=== PATIENT | female | born 1970 | race Caucasian/White ===

== ENCOUNTER → 2021-10-08 07:25 | Outpatient (CLI) | payer OTHER, SELFPAY ==
--- NOTE | ~2021-10-08 | MR_ITS ---
EXAMINATION: MR knee LT wo con DATE: 10/08/2021 08:02 INDICATION: Chronic anterior left knee pain TECHNIQUE: Magnetic resonance imaging (MRI) of the left knee was performed without intravenous contra st. Sequences included coronal PD-weighted FSE, coronal PD-weighted FS FSE, sagittal T2-weighted FSE , sagittal PD-weighted FS FSE and axial PD weighted fat saturated FSE. COMPARISON: None. FINDINGS: Medial compartment: Medial meniscus is normal. Partial-thickness chondral ulceration with chondral surface irregularity a nd partial-thickness cartilage loss mild at the anterior weightbearing medial femoral condyle and inv olving greater than 50% the cartilage thickness at the central weightbearing medial femoral condyle. Partial-thickness chondral fissure along the lateral aspect of the medial tibial plateau. Lateral compartment: Lateral meniscus is normal. Deep chondral ulceration with small central subchondral osteophytes at th e medial side of the anterior weightbearing lateral femoral condyle. Partial-thickness chondral fissu ring along the lateral tibial plateau. Patellofemoral compartment: Deep chondral ulceration at the patellar apical ridge. Small region of partial-thickness chondral fis suring at both the medial and lateral patellar facets. Additional more extensive and partial-thicknes s chondral ulceration and place involving greater than 50% the cartilage thickness at the medial and lateral trochlea and intervening trochlear groove. Ligaments and tendons: Anterior and posterior cruciate ligaments are normal. The medial collateral ligament and fibular triston ateral ligament complex are normal. Mild tendinopathy at the proximal patellar tendon. Quadriceps ten don is normal. The visualized medial and lateral hamstring tendons as well as the iliotibial band are normal. Fluid: Minimal left knee joint effusion at the lateral gutter of the suprapatellar pouch. No loose osteochon dral bodies identified. Very small loculated fluid collection underlying the pes anserinus which coul d represent either represents rind bursitis or small ganglion cyst arising from the posterior medial joint space. Osseous/other: Normal marrow signal. No fracture or pathologic marrow replacing process. IMPRESSION: 1. 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 2. Mild proximal patellar tendinopathy. 3. Small likely fluid collection underlying the pes anserinus which could represent either pes anseri nus bursitis or a small ganglion cyst arising from the posterior medial knee joint space. Reviewed, dictated and finalized at location A. IMPRESSION: 1. Mild tricompartmental osteoarthritis with small region of high-grade chondro malacia along the anterior weightbearing lateral femoral condyle and moderate g rade chondromalacia in the medial and patellofemoral compartments. 2. Mild proximal patellar tendinopathy. 3. Small likely fluid collection underlying the pes anserinus which could repre sent either pes anserinus bursitis or a small ganglion cyst arising from the po sterior medial knee joint space.
== END ==
PROVIDERS: PCP Internal Medicine; Visit Provider Orthopaedic Surgery
DX: M17.12 Unilateral primary osteoarthritis, left knee (principal)
CPT/HCPCS: 73721